=== PATIENT | male | born 1965 | race Caucasian/White ===

== ENCOUNTER 2023-08-15 22:03 | Inpatient (IN) | payer OTHER ==
[2023-08-15 22:52] VITALS: BMI 20.8
[2023-08-16] MEDS ORDERED: NALOXONE HCL 0.4 MG/ML VIAL IM PRN (00:41)
[2023-08-16] MEDS ORDERED: BENZONATATE 200 MG CAPSULE PO PRN (00:41)
[2023-08-16] MEDS ORDERED: MAGNESIUM HYDROX 2400MG/30ML ORAL SUSPENSION 30 ML CUP PO PRN (00:41)
[2023-08-16] MEDS ORDERED: POLYETHYLENE GLYCOL (HEALTHYLAX) 3350 17 GM PACKET PO PRN (00:41)
[2023-08-16] MEDS ORDERED: ACETAMINOPHEN 325 MG TABLET (FP) PO PRN (00:41)
[2023-08-16] MEDS ORDERED: IBUPROFEN 400 MG TABLET (FP) PO PRN (00:41)
[2023-08-16] MEDS ORDERED: BENZOCAINE/MENTHOL (CHLORASEPTIC ) LOZENGE MM PRN (00:41)
[2023-08-16] MEDS ORDERED: NICOTINE POLACRILEX 2 MG LOZENGE BC PRN (00:41)
[2023-08-16] MEDS ORDERED: LOPERAMIDE HCL 2 MG CAPSULE PO PRN (00:41)
[2023-08-16] MEDS ORDERED: BISMUTH SUBSALICYLATE 524 MG/30 ML PO PRN (00:41)
[2023-08-16] MEDS ORDERED: DICYCLOMINE HCL 10 MG CAPSULE PO PRN (00:41)
[2023-08-16] MEDS ORDERED: MAG HYDROX/AL HYDROX/SIMETH 30 ML UNIT-DOSE CUP PO PRN (00:41)
[2023-08-16] MEDS ORDERED: NALOXONE HCL (KLOXXADO) 8 MG SPRAY NS PRN (00:41)
[2023-08-16] MEDS ORDERED: guaiFENesin 600 MG TABLET.ER (FP) PO PRN (00:41)
[2023-08-16] MEDS ORDERED: cloNIDine HCL 0.1 MG TABLET PO PRN (00:41)
[2023-08-16] MEDS ORDERED: methaDONE HCL 10 MG TABLET (FOR DETOX USE ONLY) PO ONE ×2 (02:30→10:00)
[2023-08-16] MEDS ORDERED: IBUPROFEN 600 MG TABLET (FP) PO ONE (03:06)
[2023-08-16] MEDS ORDERED: methaDONE HCL 10 MG TABLET (FOR DETOX USE ONLY) ONE (03:19)
[2023-08-16] MEDS: METHOCARBAMOL 500 MG TABLET PO PRN (08:37)
[2023-08-16] MEDS: diazePAM 5 MG TABLET PO PRN ×3 (08:37→22:19)
[2023-08-16] MEDS: PRENATAL VITAMINS W/ FOLIC ACID TABLET (FP) PO SCH (10:11)
[2023-08-16] MEDS: NICOTINE 14 MG/24 HOURS TOPICAL PATCH TD SCH (10:11)
[2023-08-16 14:04] LABS: CHLORIDE 109 mmol/L (98-107); POTASSIUM 3.5 mmol/L (3.5-5.1); SODIUM 141 mmol/L (136-145)
[2023-08-16 14:10] LABS: HEMATOCRIT 40.8 % (35.4-49); HEMOGLOBIN 13.5 GM/dL (11.7-16.9); MCH 30.3 pg (25.7-33.7); MCHC 33.1 g/dl (32.0-35.9); MEAN CELL VOLUME 91.6 fl (80-96); MEAN PLT VOLUME 8.2 fl (7.5-11.1); PLATELET COUNT 401 10^3/uL (134-434); RBC 4.45 M/mm3 (4.00-5.60); RDW 14.4 % (11.9-15.9); WHITE BLOOD COUNT 7.4 K/mm3 (4.0-10.0)
[2023-08-16 14:13] LABS: CALCIUM 8.6 mg/dL (8.5-10.1)
[2023-08-16 14:14] LABS: ALBUMIN 3.4 g/dl (3.4-5.0); ANION GAP 7 mmol/L (4-13); BLOOD UREA NITROGEN 18.2 mg/dL (7-18); CO2 25 mmol/L (21-32)
[2023-08-16 14:16] LABS: SGPT/ALT 40 U/L (13-61)
[2023-08-16 14:17] LABS: CREATININE 0.8 mg/dL (0.55-1.3); SGOT/AST 23 U/L (15-37)
[2023-08-16 14:18] LABS: TOT PROT 6.6 g/dl (6.4-8.2)
[2023-08-16 14:19] LABS: BILIRUBIN,TOTAL 0.6 mg/dL (0.2-1)
[2023-08-16 14:20] LABS: ALK PHOS 77 U/L (45-117)
[2023-08-16 14:29] LABS: GLUCOSE,RANDOM 121 mg/dL (74-106)
[2023-08-16] MEDS: THIAMINE HCL 100 MG TABLET (FP) PO SCH (22:18)
[2023-08-16] MEDS: MELATONIN 5 MG TABLETS PO SCH (22:18)
[2023-08-17] MEDS: NICOTINE 14 MG/24 HOURS TOPICAL PATCH TD SCH (10:18)
[2023-08-17] MEDS: PRENATAL VITAMINS W/ FOLIC ACID TABLET (FP) PO SCH (10:18)
[2023-08-17] MEDS: METHOCARBAMOL 500 MG TABLET PO PRN ×2 (10:23→22:22)
[2023-08-17] MEDS: IBUPROFEN 600 MG TABLET (FP) PO PRN ×2 (10:24→18:56)
[2023-08-17] MEDS ORDERED: ONDANSETRON *ODT* 4 MG TABLET SL ONE (15:54)
[2023-08-17] MEDS: diazePAM 5 MG TABLET PO PRN (18:53)
[2023-08-17] MEDS: MELATONIN 5 MG TABLETS PO SCH (22:20)
[2023-08-17] MEDS: THIAMINE HCL 100 MG TABLET (FP) PO SCH (22:20)
[2023-08-18] MEDS ORDERED: methaDONE HCL 10 MG TABLET (FOR DETOX USE ONLY) PO ONE (10:00)
[2023-08-18] MEDS: NICOTINE 14 MG/24 HOURS TOPICAL PATCH TD SCH (10:40)
[2023-08-18] MEDS: PRENATAL VITAMINS W/ FOLIC ACID TABLET (FP) PO SCH (10:40)
[2023-08-18] MEDS: METHOCARBAMOL 500 MG TABLET PO PRN (10:41)
[2023-08-18] MEDS: THIAMINE HCL 100 MG TABLET (FP) PO SCH (22:29)
[2023-08-18] MEDS: MELATONIN 5 MG TABLETS PO SCH (22:29)
[2023-08-18] MEDS: diazePAM 5 MG TABLET PO PRN (22:31)
[2023-08-19] MEDS: PRENATAL VITAMINS W/ FOLIC ACID TABLET (FP) PO SCH (10:45)
[2023-08-19] MEDS: NICOTINE 14 MG/24 HOURS TOPICAL PATCH TD SCH (10:45)
[2023-08-19] MEDS: METHOCARBAMOL 500 MG TABLET PO PRN (10:46)
[2023-08-19] MEDS: risperiDONE 0.5 MG TABLET PO SCH (23:03)
[2023-08-19] MEDS: THIAMINE HCL 100 MG TABLET (FP) PO SCH (23:03)
[2023-08-19] MEDS: MIRTAZAPINE 15 MG TABLET (FP) PO SCH (23:03)
[2023-08-19] MEDS: MELATONIN 5 MG TABLETS PO SCH (23:03)
[2023-08-20] MEDS ORDERED: methaDONE HCL 10 MG TABLET (FOR DETOX USE ONLY) PO ONE (10:00)
[2023-08-20] MEDS: NICOTINE 14 MG/24 HOURS TOPICAL PATCH TD SCH (10:25)
[2023-08-20] MEDS: PRENATAL VITAMINS W/ FOLIC ACID TABLET (FP) PO SCH (10:25)
[2023-08-20] MEDS: risperiDONE 0.5 MG TABLET PO SCH ×2 (10:26→22:06)
[2023-08-20] MEDS: METHOCARBAMOL 500 MG TABLET PO PRN ×3 (10:26→22:06)
[2023-08-20] MEDS: IBUPROFEN 600 MG TABLET (FP) PO PRN (16:37)
[2023-08-20] MEDS: MELATONIN 5 MG TABLETS PO SCH (22:05)
[2023-08-20] MEDS: THIAMINE HCL 100 MG TABLET (FP) PO SCH (22:06)
[2023-08-20] MEDS: MIRTAZAPINE 15 MG TABLET (FP) PO SCH (22:06)
[2023-08-21] MEDS: METHOCARBAMOL 500 MG TABLET PO PRN (05:39)
[2023-08-21 08:57] VITALS: BP 123/71; PULSE 78; RESP 16; TEMP 97.6
[2023-08-21] MEDS: risperiDONE 0.5 MG TABLET PO SCH (10:14)
[2023-08-21] MEDS: PRENATAL VITAMINS W/ FOLIC ACID TABLET (FP) PO SCH (10:14)
[2023-08-21] MEDS: NICOTINE 14 MG/24 HOURS TOPICAL PATCH TD SCH (10:14)
== END 2023-08-21 10:32 | disposition home or self-care (01) | DRG 773 ==
LOC: YASAS 22:03 → Y3N 08-16 03:16
PROVIDERS: ADMIT Allergy & Immunology; ATTEND Allergy & Immunology
PROC: HZ2ZZZZ Detoxification Services for Substance Abuse Treatment (ICD-10-PCS; principal; 2023-08-16)
DX: F11.23 Opioid dependence with withdrawal (principal); F10.20 Alcohol dependence, uncomplicated; F17.210 Nicotine dependence, cigarettes, uncomplicated; F19.24 Other psychoactive substance dependence with psychoactive substance-induced mood disorder; G47.00 Insomnia, unspecified; J45.20 Mild intermittent asthma, uncomplicated; M54.50 Low back pain, unspecified; G89.29 Other chronic pain; Z86.59 Personal history of other mental and behavioral disorders; Z56.0 Unemployment, unspecified; Z59.00 Homelessness unspecified
CPT/HCPCS: 36415; 80053; 80307; 85027; 86780; 87635; 93005; 93010; Q0162

== ENCOUNTER 2023-10-19 15:41 | Inpatient (IN) | payer OTHER ==
[2023-10-19 17:06] VITALS: BMI 20.3
[2023-10-19] MEDS ORDERED: guaiFENesin 600 MG TABLET.ER (FP) PO PRN (18:10)
[2023-10-19] MEDS ORDERED: MAG HYDROX/AL HYDROX/SIMETH 30 ML UNIT-DOSE CUP PO PRN (18:10)
[2023-10-19] MEDS ORDERED: NICOTINE POLACRILEX 2 MG GUM BUC PRN (18:10)
[2023-10-19] MEDS ORDERED: NICOTINE POLACRILEX 2 MG LOZENGE BC PRN (18:10)
[2023-10-19] MEDS ORDERED: NALOXONE HCL (KLOXXADO) 8 MG SPRAY NS PRN (18:10)
[2023-10-19] MEDS ORDERED: BENZONATATE 200 MG CAPSULE PO PRN (18:10)
[2023-10-19] MEDS ORDERED: NALOXONE HCL 0.4 MG/ML VIAL IM PRN (18:10)
[2023-10-19] MEDS ORDERED: BENZOCAINE/MENTHOL (CHLORASEPTIC ) LOZENGE MM PRN (18:10)
[2023-10-19] MEDS ORDERED: P-EPHED 60MG/TRIPROLIDI 2.5MG TABLET PO PRN (18:10)
[2023-10-19] MEDS ORDERED: MAGNESIUM HYDROX 2400MG/30ML ORAL SUSPENSION 30 ML CUP PO PRN (18:10)
[2023-10-19] MEDS ORDERED: DOCUSATE SODIUM 100 MG CAPSULE (FP) PO PRN (18:10)
[2023-10-19] MEDS ORDERED: POLYETHYLENE GLYCOL (HEALTHYLAX) 3350 17 GM PACKET PO PRN (18:10)
[2023-10-19] MEDS ORDERED: LOPERAMIDE HCL 2 MG CAPSULE PO PRN (18:10)
[2023-10-19] MEDS: MELATONIN 5 MG TABLETS PO SCH (22:20)
[2023-10-19] MEDS: LIDOCAINE PATCH REMOVAL MC SCH (22:20)
[2023-10-19] MEDS: THIAMINE 100 MG TABLET PO SCH (22:21)
[2023-10-20] MEDS: IBUPROFEN 600 MG TABLET (FP) PO PRN (07:32)
[2023-10-20] MEDS: methaDONE HCL 10 MG TABLET PO SCH (10:46)
[2023-10-20] MEDS: NICOTINE 14 MG/24 HOURS TOPICAL PATCH TD SCH (10:47)
[2023-10-20] MEDS: LIDOCAINE 4% PATCH TP SCH (10:47)
[2023-10-20] MEDS: hydrOXYzine PAMOATE 25 MG CAPSULE (FP) PO PRN (10:47)
[2023-10-20] MEDS: PRENATAL VITAMINS W/ FOLIC ACID TABLET (FP) PO SCH (10:47)
[2023-10-20] MEDS: ACETAMINOPHEN 325 MG TABLET (FP) PO PRN (10:48)
[2023-10-20] MEDS: METHOCARBAMOL 500 MG TABLET PO PRN (10:50)
[2023-10-20 11:43] LABS: HEMATOCRIT 40.7 % (35.4-49); HEMOGLOBIN 13.5 GM/dL (11.7-16.9); MCH 30.4 pg (25.7-33.7); MCHC 33.1 g/dl (32.0-35.9); MEAN CELL VOLUME 91.8 fl (80-96); MEAN PLT VOLUME 7.9 fl (7.5-11.1); PLATELET COUNT 429 10^3/uL (134-434); RBC 4.44 M/mm3 (4.00-5.60); RDW 14.5 % (11.9-15.9); WHITE BLOOD COUNT 6.4 K/mm3 (4.0-10.0)
[2023-10-20 11:46] LABS: CHLORIDE 107 mmol/L (98-107); SODIUM 136 mmol/L (136-145)
[2023-10-20 11:47] LABS: CALCIUM 8.8 mg/dL (8.5-10.1)
[2023-10-20 11:48] LABS: ALBUMIN 3.5 g/dl (3.4-5.0); ANION GAP 2 mmol/L (4-13); BLOOD UREA NITROGEN 17.9 mg/dL (7-18); CO2 27 mmol/L (21-32); GLUCOSE,RANDOM 104 mg/dL (74-106)
[2023-10-20 11:51] LABS: CREATININE 0.6 mg/dL (0.55-1.3); SGOT/AST 19 U/L (15-37); SGPT/ALT 32 U/L (13-61)
[2023-10-20 11:52] LABS: BILIRUBIN,TOTAL 0.7 mg/dL (0.2-1); TOT PROT 6.8 g/dl (6.4-8.2)
[2023-10-20 11:53] LABS: ALK PHOS 80 U/L (45-117)
[2023-10-21 12:18] LABS: EPI CELLS >36 /uL (0-25.1); HYALINE CASTS 11 /uL (0-3.1); PH,URINE 6.5 (5.0-8.0); URINE APPEARANCE CLEAR; URINE BACTERIA 16 /uL (0-1359); URINE BILIRUBIN NEGATIVE (NEGATIVE); URINE COLOR DK YELLOW; URINE GLUCOSE (UA) NEGATIVE (NEGATIVE); URINE KETONE 1+ (NEGATIVE); URINE LEUK ESTERASE NEGATIVE (NEGATIVE); URINE NITRITE NEGATIVE (NEGATIVE); URINE PROTEIN 1+ (NEGATIVE); URINE WBC 15 /uL (0-25.8)
[2023-10-21 12:41] LABS: URINE RBC 81.3 /uL (0-23.9)
[2023-10-21] MEDS: methaDONE HCL 10 MG TABLET PO ONE (14:50)
[2023-10-22] MEDS: methaDONE HCL 40 MG DISPERSABLE TABLET PO SCH (06:57)
[2023-10-24] MEDS: IBUPROFEN 400 MG TABLET (FP) PO PRN (06:40)
[2023-10-31] MEDS: CHOLECALCIFEROL (VIT D3) 400 UNIT (10 MCG) TABLET PO SCH (16:48)
[2023-10-31] MEDS: VITAMINS A AND D TOPICAL OINTMENT TP SCH (20:42)
[2023-11-02] MEDS ORDERED: VITAMINS A AND D TOPICAL OINTMENT TP PRN (08:41)
[2023-11-02] MEDS ORDERED: BACITRACIN 0.9 GM PACKET ONE (19:38)
[2023-11-02] MEDS: BACITRACIN 0.9 GM PACKET TP SCH (21:33)
[2023-11-04] MEDS: methaDONE HCL 40 MG DISPERSABLE TABLET PO SCH (06:44)
[2023-11-11] MEDS: methaDONE HCL 40 MG DISPERSABLE TABLET PO SCH (07:29)
[2023-11-17 06:54] VITALS: BP 120/80; PULSE 89; RESP 17; TEMP 98.1
== END 2023-11-17 10:40 | disposition home or self-care (01) | DRG 772 ==
LOC: YASAS 15:41 → Y5N 18:38
PROVIDERS: ADMIT Allergy & Immunology; ATTEND Psychiatry & Neurology Pain Medicine
PROC: HZ42ZZZ Group Counseling for Substance Abuse Treatment, Cognitive-Behavioral (ICD-10-PCS; principal; 2023-10-19)
DX: F14.20 Cocaine dependence, uncomplicated (principal); F11.20 Opioid dependence, uncomplicated; F12.20 Cannabis dependence, uncomplicated; F17.210 Nicotine dependence, cigarettes, uncomplicated; F32.A Depression, unspecified; B35.1 Tinea unguium; I83.93 Asymptomatic varicose veins of bilateral lower extremities; J45.909 Unspecified asthma, uncomplicated; M54.50 Low back pain, unspecified; G89.29 Other chronic pain; R63.4 Abnormal weight loss; Z68.20 Body mass index [BMI] 20.0-20.9, adult; S91.202A Unspecified open wound of left great toe with damage to nail, initial encounter; X58.XXXA Exposure to other specified factors, initial encounter; Y93.9 Activity, unspecified; Y92.238 Other place in hospital as the place of occurrence of the external cause
CPT/HCPCS: 36415; 80053; 80305; 80307; 81003; 85027; 86780; 87811

== ENCOUNTER 2023-12-22 16:35 | Inpatient (IN) | payer OTHER ==
[2023-12-22 18:29] VITALS: BMI 24.3
[2023-12-22] MEDS ORDERED: LOPERAMIDE HCL 2 MG CAPSULE PO PRN (20:34)
[2023-12-22] MEDS ORDERED: BENZONATATE 200 MG CAPSULE PO PRN (20:34)
[2023-12-22] MEDS ORDERED: NALOXONE (NARCAN) HCL 4 MG/0.1 ML SPRAY NS PRN (20:34)
[2023-12-22] MEDS ORDERED: BENZOCAINE/MENTHOL (CHLORASEPTIC ) LOZENGE MM PRN (20:34)
[2023-12-22] MEDS ORDERED: NICOTINE POLACRILEX 2 MG LOZENGE BC PRN (20:34)
[2023-12-22] MEDS ORDERED: MAGNESIUM HYDROX 2400MG/30ML ORAL SUSPENSION 30 ML CUP PO PRN (20:34)
[2023-12-22] MEDS ORDERED: IBUPROFEN 400 MG TABLET (FP) PO PRN (20:34)
[2023-12-22] MEDS ORDERED: P-EPHED 60MG/TRIPROLIDI 2.5MG TABLET PO PRN (20:34)
[2023-12-22] MEDS ORDERED: POLYETHYLENE GLYCOL (HEALTHYLAX) 3350 17 GM PACKET PO PRN (20:34)
[2023-12-22] MEDS ORDERED: MAG HYDROX/AL HYDROX/SIMETH 30 ML UNIT-DOSE CUP PO PRN (20:34)
[2023-12-22] MEDS ORDERED: hydrOXYzine PAMOATE 25 MG CAPSULE (FP) PO PRN (20:34)
[2023-12-22] MEDS ORDERED: DOCUSATE SODIUM 100 MG CAPSULE (FP) PO PRN (20:34)
[2023-12-22] MEDS ORDERED: guaiFENesin 600 MG TABLET.ER (FP) PO PRN (20:34)
[2023-12-22] MEDS ORDERED: NICOTINE POLACRILEX 2 MG GUM BUC PRN (20:34)
[2023-12-22] MEDS ORDERED: NALOXONE HCL 0.4 MG/ML VIAL IM PRN (20:34)
[2023-12-22] MEDS ORDERED: GABAPENTIN 100 MG CAPSULE ONE (22:25)
[2023-12-22] MEDS ORDERED: MELATONIN 5 MG TABLETS ONE (22:25)
[2023-12-22] MEDS: MELATONIN 5 MG TABLETS PO SCH (22:32)
[2023-12-22] MEDS: GABAPENTIN 100 MG CAPSULE PO SCH (22:32)
[2023-12-22] MEDS: THIAMINE 100 MG TABLET PO SCH (22:33)
[2023-12-22] MEDS: LIDOCAINE PATCH REMOVAL MC SCH (22:47)
[2023-12-23] MEDS: IBUPROFEN 600 MG TABLET (FP) PO PRN (06:31)
[2023-12-23] MEDS: methaDONE HCL 10 MG TABLET PO SCH (08:55)
[2023-12-23] MEDS: NICOTINE 14 MG/24 HOURS TOPICAL PATCH TD SCH (09:50)
[2023-12-23] MEDS: PRENATAL VITAMINS W/ FOLIC ACID TABLET (FP) PO SCH (09:50)
[2023-12-23] MEDS: BUPRENORPHINE/NALOXONE 8 MG/2 MG FILM PACKET SL SCH (09:51)
[2023-12-23] MEDS: LIDOCAINE 5% TOPICAL PATCH TP SCH (09:51)
[2023-12-23 10:28] LABS: HEMATOCRIT 38.8 % (35.4-49); HEMOGLOBIN 12.8 GM/dL (11.7-16.9); MCH 30.3 pg (25.7-33.7); MCHC 32.9 g/dl (32.0-35.9); MEAN CELL VOLUME 92.1 fl (80-96); MEAN PLT VOLUME 7.8 fl (7.5-11.1); PLATELET COUNT 389 10^3/uL (134-434); RBC 4.22 M/mm3 (4.00-5.60); RDW 15.5 % (11.9-15.9); WHITE BLOOD COUNT 6.6 K/mm3 (4.0-10.0)
[2023-12-23 10:32] LABS: POTASSIUM 4.3 mmol/L (3.5-5.1)
[2023-12-23 10:39] LABS: ALBUMIN 3.8 g/dl (3.4-5.0); BLOOD UREA NITROGEN 21.8 mg/dL (7-18); CALCIUM 9.1 mg/dL (8.5-10.1)
[2023-12-23 10:42] LABS: CREATININE 0.7 mg/dL (0.55-1.3)
[2023-12-23 10:43] LABS: BILIRUBIN,TOTAL 0.5 mg/dL (0.2-1); TOT PROT 6.7 g/dl (6.4-8.2)
[2023-12-23] MEDS: TOLNAFTATE 1% CREAM 15 GM TUBE TP SCH (13:20)
[2023-12-23] MEDS: BACLOFEN 10 MG TABLET (FP) PO SCH (13:20)
[2023-12-23 13:23] LABS: EPI CELLS 15 /uL (0-25.1); HYALINE CASTS 6 /uL (0-3.1); URINE APPEARANCE CLEAR; URINE BACTERIA 11 /uL (0-1359); URINE BILIRUBIN NEGATIVE (NEGATIVE); URINE COLOR DK YELLOW; URINE GLUCOSE (UA) NEGATIVE (NEGATIVE); URINE KETONE TRACE (NEGATIVE); URINE LEUK ESTERASE 1+ (NEGATIVE); URINE NITRITE NEGATIVE (NEGATIVE); URINE PROTEIN TRACE (NEGATIVE); URINE RBC 30 /uL (0-23.9); URINE WBC 79 /uL (0-25.8)
[2023-12-23] MEDS: GABAPENTIN 400 MG CAPSULE PO SCH (14:42)
[2023-12-23] MEDS: GABAPENTIN 100 MG CAPSULE PO SCH (15:05)
[2023-12-24] MEDS: BUPRENORPHINE/NALOXONE 2 MG/0.5 MG FILM PACKET SL SCH (10:57)
[2023-12-27] MEDS: GABAPENTIN 400 MG CAPSULE PO SCH (13:41)
[2023-12-27] MEDS: BUPRENORPHINE/NALOXONE 4 MG/1 MG FILM PACKET SL SCH (18:38)
[2023-12-28] MEDS: BUPRENORPHINE/NALOXONE 4 MG/1 MG FILM PACKET SL SCH (09:36)
[2024-01-02] MEDS: GABAPENTIN 300 MG CAPSULE PO SCH (21:07)
[2024-01-08] MEDS: ACETAMINOPHEN 325 MG TABLET (FP) PO PRN (06:28)
[2024-01-12] MEDS: GABAPENTIN 400 MG CAPSULE PO SCH (10:25)
[2024-01-12] MEDS: METHYL SALICYLATE/MENTHOL 30 GM TUBE TP SCH (10:34)
[2024-01-20 06:44] VITALS: RESP 18; TEMP 97.3
[2024-01-20 08:50] VITALS: BP 136/92; PULSE 84
== END 2024-01-20 13:28 | disposition home or self-care (01) | DRG 772 ==
LOC: YASAS 16:35 → Y3E 20:57
PROVIDERS: ADMIT Allergy & Immunology; ATTEND Psychiatry & Neurology Pain Medicine
PROC: HZ42ZZZ Group Counseling for Substance Abuse Treatment, Cognitive-Behavioral (ICD-10-PCS; principal; 2023-12-22)
DX: F14.10 Cocaine abuse, uncomplicated (principal); F11.20 Opioid dependence, uncomplicated; F12.20 Cannabis dependence, uncomplicated; F17.210 Nicotine dependence, cigarettes, uncomplicated; F19.24 Other psychoactive substance dependence with psychoactive substance-induced mood disorder; F32.A Depression, unspecified; G47.00 Insomnia, unspecified; B35.1 Tinea unguium; M54.41 Lumbago with sciatica, right side; G89.29 Other chronic pain; Z86.59 Personal history of other mental and behavioral disorders; Z99.89 Dependence on other enabling machines and devices; Z56.0 Unemployment, unspecified; Z59.02 Unsheltered homelessness
CPT/HCPCS: 36415; 80053; 80305; 80307; 81003; 85027; 86780; J0475